=== PATIENT | female | born 1970 | race Caucasian/White ===

== ENCOUNTER → 2018-04-26 | Outpatient (CLI) | payer BC ==
--- NOTE | 2018-04-30 12:04 | MM ---
Reason for exam: screening (asymptomatic). Last mammogram was performed 1 year and 9 months ago. History: Patient history of other cancer and had first child at age 33. Family history of premenopausal breast cancer in mother at age 49 and breast cancer in maternal aunt. Took hormonal contraceptives for 5 years. Physical Findings: A clinical breast exam by your physician is recommended on an annual basis and results should be correlated with mammographic findings. MG Screening Mammo w CAD Bilateral CC and MLO view(s) were taken. Prior study comparison: August 02, 2016, bilateral MG screening mammo w CAD. September 24, 2014, bilateral MG screening mammo w CAD. Finding: There is new spiculated architectural distortion in the subareolar position of the left breast on MLO view. Focal asymmetry left outer CC view, a change. ASSESSMENT: Incomplete: need additional imaging evaluation, BI-RAD 0 RECOMMENDATION: Special view mammogram of the left breast. If lesion persists on supplemental views, image directed ultrasound is recommended. [facility] will attempt to contact patient to return for supplemental views and ultrasound if indicated.
== END | disposition home or self-care (01) ==
LOC: RADMAMWWP 14:47
PROVIDERS: ATTEND Obstetrics & Gynecology
DX: Z12.31 Encounter for screening mammogram for malignant neoplasm of breast (principal); Z80.3 Family history of malignant neoplasm of breast
CPT/HCPCS: 77067

== ENCOUNTER → 2018-08-13 | Outpatient (CLI) | payer BC ==
--- NOTE | 2018-08-13 08:20 | CT ---
EXAMINATION TYPE: CT sinus wo con DATE OF EXAM: 08/13/2018 COMPARISON: None HISTORY: Sinusitis CT DLP: 641.[address] of the paranasal sinuses was performed in the axial and coronal planes. Bone and soft tissue settings are submitted. The paranasal sinuses demonstrate normal aeration and development. The paranasal sinuses are free of mucosal thickening or air fluid level. The osteal meatal units are patent bilaterally. The nasal septum is midline. No bony destructive changes are seen within the field of view. IMPRESSION: Normal unenhanced CT of the paranasal sinuses.
== END | disposition home or self-care (01) ==
LOC: RADCTMAIN 08:03
PROVIDERS: ATTEND Otolaryngology
DX: J32.9 Chronic sinusitis, unspecified (principal)
CPT/HCPCS: 70486

== ENCOUNTER 2019-03-02 19:20 | Emergency (ER) | payer BC ==
[2019-03-02 19:25] VITALS: RESP 18; TEMP 98.8
[2019-03-02] MEDS ORDERED: METOCLOPRAMIDE 5 MG/ML 2 ML VIAL IVP STA (19:40)
[2019-03-02] MEDS ORDERED: diphenhydrAMINE 50 MG/ML 1 ML VIAL IVP STA (19:40)
[2019-03-02] MEDS ORDERED: SODIUM CHLORIDE 0.9% 1,000 ML IV ONE (19:41)
--- NOTE | 2019-03-02 19:42 | ED ---
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 Patient states she's had a headache for 4 days duration. Headache as pressure-like in nature, mostly frontal, associated with phobia photophobia. This headache was not sudden in onset is not the worse headache of her life. There is no focal neurologic deficits. Patient reports his headache is similar to previous though in the past her headaches have usually resolved with her medication including Maxalt. Patient reports she took Maxalt yesterday and the headache improved however she woke up today again had a fake a persisted throughout the day which prompted her to the ER for evaluation. MD Complaint: "migraine" Onset/Timin -: days(s) Onset Description: gradual Location: frontal Severity: moderate Quality: aching Consistency: constant Improves With: rest, other (Maxalt) Worsens With: light, noise Associated Symptoms: photophobia Treatments Prior to Arrival: prescription analgesic - Related Data Home Medications Medication Instructions Recorded Confirmed Rizatriptan Benzoate [Maxalt [employer]PERATOR] 5 mg SL DAILY PRN 03/02/19 03/02/19 Venlafaxine HCl ER [Effexor XR] 75 mg PO DAILY 03/02/19 03/02/19 Allergies Allergy/AdvReac Type Severity Reaction Status Date / Time erythromycin base AdvReac Nausea & Verified 03/02/19 19:41 Vomiting morphine AdvReac Nausea & Verified 03/02/19 19:41 Vomiting Review of Systems ROS Statement: Those systems with pertinent positive or pertinent negative responses have been documented in the HPI. ROS Other: All systems not noted in ROS Statement are negative. Past Medical History Additional Past Medical History / Comment(s): asthma as a child,states "having periods every 7-10 days with slight anemia", migraines History of Any Multi-Drug Resistant Organisms: None Reported Past Surgical History: Orthopedic Surgery Additional Past Surgical History / Comment(s): mult knee surgeries, ximena femur surgery Past Anesthesia/Blood Transfusion Reactions: Postoperative Nausea & Vomiting (PONV) Past Psychological History: Depression Smoking Status: Current every day smoker Past Alcohol Use History: None Reported Past Drug Use History: None Reported - Past Family History Father Family Medical History: Cancer Additional Family Medical History / Comment(s): colon ca 66 Sister(s) Family Medical History: Cancer Additional Family Medical History / Comment(s): breast ca at age 56 General Exam - General Exam Comments Initial Comments: Physical Exam GENERAL: Patient is well-developed and well-nourished. Patient is nontoxic and well- hydrated and is in no distress. HENT: Normocephalic, Atraumatic. EYES: PERRL, EOMI PULMONARY: Unlabored respirations. No audible rales rhonchi or wheezing was noted. CARDIOVASCULAR: There is a regular rate and rhythm without any murmurs gallops or rubs. ABDOMEN: Soft and nontender with normal bowel sounds. SKIN: Skin is clear with no lesions or rashes and otherwise unremarkable. : Deferred NEUROLOGIC: Patient is alert and oriented x3. Moving all extremities spontaneously MUSCULOSKELETAL: Normal extremities with adequate strength and full range of motion. No lower extremity swelling or edema. No calf tenderness. PSYCHIATRIC: Normal psychiatric evaluation Limitations: no limitations Course Vital Signs 03/02/19 03/02/19 19:21 21:45 Temperature 98.8 F Pulse Rate 76 66 Respiratory 18 18 Rate Blood Pressure 121/81 109/64 O2 Sat by Pulse 99 100 Oximetry - Reevaluation(s) Reevaluation #1: Patient was reevaluated her headache has resolved she is resting comfortably playing on her phone at this time would like to be discharged home. 03/02/19 21:25 Medical Decision Making - Medical Decision Making Relatively healthy 48-year-old female with a history of migraines presenting with migraine for 4 days duration, no red flag symptoms Physical exam is unremarkable Patient be rehydrated and treated with medications She was reevaluated after meds and fluids. Patient's resting comfortably playing on her phone headache has resolved she would like to be discharged home. Disposition Clinical Impression: Headache Disposition: HOME SELF-CARE Condition: Stable Instructions (If sedation given, give patient instructions): Acute Headache (ED) Is patient prescribed a controlled substance at d/c from ED?: No Referrals: Britton Powell III, MD [Primary Care Provider] - 1-2 days
[2019-03-02 21:47] VITALS: BP 109/64; PULSE 66
== END 2019-03-02 21:45 | disposition home or self-care (01) ==
LOC: EC 19:20
DX: R51 Headache (principal); H53.149 Visual discomfort, unspecified; F32.9 Major depressive disorder, single episode, unspecified; F17.200 Nicotine dependence, unspecified, uncomplicated; Z79.899 Other long term (current) drug therapy; Z88.1 Allergy status to other antibiotic agents; Z88.5 Allergy status to narcotic agent
CPT/HCPCS: 99283; 96374; 96375; 96361 ×2; J1200; J2765

== ENCOUNTER → 2019-04-28 | Outpatient (CLI) | payer BC ==
--- NOTE | 2019-04-28 11:05 | MM ---
Reason for exam: additional evaluation requested from prior study. Last mammogram was performed 1 year ago. History: Patient has history of other cancer at age 31 and had first child at age 33. Family history of premenopausal breast cancer in mother at age 49 and breast cancer in maternal aunt. Taking hormonal contraceptives for 5 years beginning at age 18. Physical Findings: Nurse did not find any significant physical abnormalities on exam. MG Diagnostic Mammo w CAD RICARDO Bilateral CC, MLO, and LM view(s) were taken. Spot compression CC and spot compression MLO view(s) were taken of the right breast. Prior study comparison: May 09, 2018, left breast MG 3d work up w/cad LT. May 09, 2018, left breast US breast workup limited LT. April 26, 2018, bilateral MG screening mammo w CAD. August 02, 2016, bilateral MG screening mammo w CAD. September 24, 2014, bilateral MG screening mammo w CAD. The questioned asymmetric densities are either stable or have resolved. Persistent nodularity posterior 6 o'clock right breast may appear more dense on the CC view but is smaller than 2015. Ultrasound recommended. These results were verbally communicated with the patient and result sheet given to the patient on 04/28/19. ASSESSMENT: Incomplete: need additional imaging evaluation, BI-RAD 0 RECOMMENDATION: Ultrasound of the right breast. (6 o'clock)
--- NOTE | 2019-04-28 11:07 | USB ---
Reason for exam: additional evaluation requested from abnormal screening. History: Patient has history of other cancer at age 31 and had first child at age 33. Family history of premenopausal breast cancer in mother at age 49 and breast cancer in maternal aunt. Taking hormonal contraceptives for 5 years beginning at age 18. US Breast Limited RT Right limited breast ultrasound including focal area of concern, retroareolar and axilla demonstrates no cystic or solid lesion seen. Scanned 3-6 o o'clock. 1 year follow up diagnostic mammogram recommended. Total 2 year follow up left breast. Precautionary 1 year diagnostic follow up right breast. These results were verbally communicated with the patient and result sheet given to the patient on 04/28/19. ASSESSMENT: Probably benign, BI-RAD 3 RECOMMENDATION: Follow-up diagnostic mammogram of both breasts in 1 year.
== END | disposition home or self-care (01) ==
LOC: RADMAMWWP 07:40
PROVIDERS: ATTEND Obstetrics & Gynecology
DX: R92.8 Other abnormal and inconclusive findings on diagnostic imaging of breast (principal)
CPT/HCPCS: 77066

== ENCOUNTER → 2020-12-15 | Outpatient (CLI) | payer BC ==
--- NOTE | 2020-12-15 11:29 | MM ---
Reason for exam: additional evaluation requested from prior study. Last mammogram was performed 1 year and 8 months ago. History: Patient has history of other cancer at age 31 and had first child at age 33. Family history of premenopausal breast cancer in mother at age 49 and breast cancer in maternal aunt at age 60. Took hormonal contraceptives for 10 years beginning at age 18. Physical Findings: Nurse did not find any significant physical abnormalities on exam. MG 3D Diag Mammo W/Cad RICARDO Bilateral CC and MLO view(s) were taken. Prior study comparison: April 28, 2019, bilateral MG diagnostic mammo w CAD RICARDO. May 09, 2018, left breast MG 3d work up w/cad LT. The breast tissue is heterogeneously dense. This may lower the sensitivity of mammography. Stable benign calcifications. Focal asymmetry outer lower right breast is stable. These results were verbally communicated with the patient and result sheet given to the patient on 12/15/20. ASSESSMENT: Benign, BI-RAD 2 RECOMMENDATION: Routine screening mammogram of both breasts in 1 year.
== END | disposition home or self-care (01) ==
LOC: RADMAMWWP 09:06
PROVIDERS: ATTEND Obstetrics & Gynecology
DX: R92.1 Mammographic calcification found on diagnostic imaging of breast (principal); N64.89 Other specified disorders of breast; Z80.3 Family history of malignant neoplasm of breast; Z78.0 Asymptomatic menopausal state
CPT/HCPCS: 77062; 77066

== ENCOUNTER → 2022-08-24 | Outpatient (CLI) | payer BC ==
--- NOTE | 2022-08-25 10:28 | MM ---
Reason for Exam: Screening (asymptomatic). Last mammogram was performed 1 year(s) and 8 month(s) ago. Patient History: Menarche at age 13. First Full-Term at age 33. Late child-bearing (after 30). Other cancer, age 31. Hormonal Contraceptives, starting at age 18 for 10 years. Maternal aunt had breast cancer, age 60. Mother had breast cancer, age 49. Risk Values: Esperanza 5 year model risk: 2.0%. NCI Lifetime model risk: 17.3%. Prior Study Comparison: 05/09/2018 Left Diagnostic Mammogram, [facility]. 04/28/2019 Bilateral Diagnostic Mammogram, [facility]. 12/15/2020 Bilateral Diagnostic Mammogram, [facility]. Tissue Density: There are scattered fibroglandular densities. Findings: Analyzed By CAD. There is a focal asymmetry at the 6:00 position inferior right breast. Parenchymal pattern and distribution appears stable from comparison. Benign punctate calcifications are present. No significant interval change is evident. No suspicious groups of microcalcifications, spiculated or lobular masses, architectural distortion or other secondary signs of malignancy are mammographically apparent. Overall Assessment: Benign, BI-RAD 2 Management: Screening Mammogram of both breasts in 1 year. A negative mammogram report should not preclude additional follow up of suspicious palpable abnormalities. Patient should continue monthly self breast exam. A clinical breast exam by your physician is recommended on an annual basis and results should be correlated with mammographic findings. Electronically signed and approved by: Kai Araiza D.O. Radiologis
== END | disposition home or self-care (01) ==
LOC: RADMAMWWP 16:22
PROVIDERS: ATTEND Obstetrics & Gynecology
DX: Z12.31 Encounter for screening mammogram for malignant neoplasm of breast (principal); Z80.3 Family history of malignant neoplasm of breast
CPT/HCPCS: 77063; 77067

== ENCOUNTER → 2023-10-31 | Outpatient (CLI) | payer BC ==
--- NOTE | 2023-11-02 19:19 | MM ---
Reason for Exam: Screening (asymptomatic). Last mammogram was performed 1 year(s) and 2 month(s) ago. Patient History: Menarche at age 13. First Full-Term at age 33. Late child-bearing (after 30). Patient has history of breast feeding. Other cancer, age 31. Hormonal Contraceptives, starting at age 18 for 10 years. Maternal aunt had breast cancer, age 60. Mother had breast cancer, age 49. Risk Values: Esperanza 5 year model risk: 2.1%. NCI Lifetime model risk: 16.7%. Prior Study Comparison: 04/28/2019 Bilateral Diagnostic Mammogram, [facility]. 12/15/2020 Bilateral Diagnostic Mammogram, [facility]. 08/24/2022 Bilateral MG 3D screening mammo w/cad, [facility]. Tissue Density: There are scattered fibroglandular densities. Findings: Analyzed By CAD. Unchanged bilateral areas of asymmetric density. There is no suspicious group of microcalcifications or new suspicious mass in either breast. Overall Assessment: Benign, BI-RAD 2 Management: Screening Mammogram of both breasts in 1 year. . Patient should continue monthly self-breast exams. A clinical breast exam by your physician is recommended on an annual basis. This exam should not preclude additional follow-up of suspicious palpable abnormalities. Note on Esperanza scores and lifetime risk: 1. A Esperanza score greater than 3% is considered moderate risk. If this is the case, consider specialist referral to assess eligibility for a risk reducing agent. 2. If overall lifetime risk for the development of breast cancer is 20% or higher, the patient may qualify for future screening with alternating mammogram and breast MRI. Electronically signed and approved by: Guero Boucher M.D. Radiologist
== END | disposition home or self-care (01) ==
LOC: RADMAMWWP 15:57
PROVIDERS: ATTEND Obstetrics & Gynecology
DX: Z12.31 Encounter for screening mammogram for malignant neoplasm of breast (principal); Z80.3 Family history of malignant neoplasm of breast
CPT/HCPCS: 77063; 77067

== ENCOUNTER → 2024-11-03 | Outpatient (CLI) | payer BC ==
--- NOTE | 2024-11-03 15:39 | MM ---
Reason for Exam: Screening (asymptomatic). Last screening mammogram was performed 12 month(s) ago. Patient History: Menarche at age 13. First Full-Term at age 33. Late child-bearing (after 30). Patient has history of breast feeding. Other cancer, age 31. Hormonal Contraceptives, starting at age 18 for 10 years. Maternal aunt had breast cancer, age 60. Mother had breast cancer, age 49. Risk Values: Esperanza 5 year model risk: 2.2%. NCI Lifetime model risk: 16.5%. Prior Study Comparison: 12/15/2020 Bilateral Diagnostic Mammogram, [facility]. 08/24/2022 Bilateral MG 3D screening mammo w/cad, [facility]. 10/31/2023 Bilateral MG 3D screening mammo w/cad, [facility]. Tissue Density: There are scattered areas of fibroglandular density. Findings: Analyzed By CAD. Right breast: There is no suspicious group of microcalcifications or new suspicious mass. Left breast: There is no suspicious group of microcalcifications or new suspicious mass. Overall Assessment: Negative, BI-RAD 1 Management: Screening Mammogram of both breasts in [address] [facility] will attempt to contact patient to return for supplemental views and ultrasound if indicated. Patient should continue monthly self-breast exams. A clinical breast exam by your physician is recommended on an annual basis. This exam should not preclude additional follow-up of suspicious palpable abnormalities. Note on Esperanza scores and lifetime risk: 1. A Esperanza score greater than 3% is considered moderate risk. If this is the case, consider specialist referral to assess eligibility for a risk reducing agent. 2. If overall lifetime risk for the development of breast cancer is 20% or higher, the patient may qualify for future screening with alternating mammogram and breast MRI. [facility], , 11/03/2024 3:37 PM. Electronically signed and approved by: Luis Carlos Mast DO
--- NOTE | 2024-11-04 06:47 | CTL ---
EXAMINATION TYPE: CT Low Dose Lung DATE OF EXAM ORDERED: 11/03/2024 COMPARISON: None. CLINICAL INDICATION: Female, 54 years old with history of Z12.2 LUNG CA SCREENING; PHH, Former smoke r, 1 ppd x 20 years., Lung cancer screening, History of Smoking/tobacco use. TECHNIQUE: Low dose computed tomography scan was performed through the chest at 1 mm thick sections a nd reconstructed images in multiple planes at 1 mm and [address] DLP: 68.[address] CTDI: 1.9 mGy Automated exposure control for dose reduction was used. CT DIAGNOSTIC QUALITY: Satisfactory FINDINGS: Nodules: RUL: None. RML: None. RLL: A 3 to 4 mm peripheral nodule axial image 215. RENNY: None. LLL: None. LUNGS: COPD: Severity: None Fibrosis: Severity: Moderate right apical pleural/parenchymal scarring Lymph nodes: None Other findings: None RIGHT PLEURAL SPACE: Effusion: None Calcification: None Thickening: Moderate right apical Pneumothorax: None LEFT PLEURAL SPACE: Effusion: None Calcification: None Thickening: None Pneumothorax: None HEART: Heart Size: Normal Coronary Calcification: None Pericardial Effusion: None OTHER FINDINGS: Upper abdomen: None Bony thorax: Scoliotic curvature of the thoracic spine Supraclavicular region: None Other: None IMPRESSION: Small peripheral 3 to 4 mm nodule right lower lobe. CT LUNG RAD AND CT CHEST RECOMMENDATION: Lung-Rad 2 Benign Appearance or Behavior: Continue annual sc reening with LDCT in 12 months. S Modifier (other clinically significant findings): None [facility], , 11/04/2024 6:44 AM
== END | disposition home or self-care (01) ==
LOC: RADCTMAIN 14:54
PROVIDERS: ATTEND Family Medicine
DX: Z12.31 Encounter for screening mammogram for malignant neoplasm of breast (principal); Z12.2 Encounter for screening for malignant neoplasm of respiratory organs; R92.323 Mammographic fibroglandular density, bilateral breasts; R91.1 Solitary pulmonary nodule; Z80.3 Family history of malignant neoplasm of breast; Z92.0 Personal history of contraception; Z87.891 Personal history of nicotine dependence
CPT/HCPCS: 71271; 77063; 77067

== ENCOUNTER 2025-03-17 09:30 | Day surgery (SDC) | payer BC ==
[2025-03-17] MEDS: LACTATED RINGERS 1,000 ML IV SCH (10:11)
[2025-03-17] MEDS: IV FLUID CONTINUATION 1,000 ML IV ONE (10:13)
[2025-03-17 10:16] VITALS: TEMP 98.4
[2025-03-17] MEDS ORDERED: PROPOFOL 10 MG/ML 20 ML VIAL IV ONE (10:32)
--- NOTE | 2025-03-17 10:37 | P.GSHP ---
History of Present Illness H&P Date: 03/17/25 Chief Complaint: Colon cancer screening with history of polyps 54-year-old female here for colonoscopy. Last colonoscopy 3 to 4 years ago. Patient with history of polyps. Family history of colon cancer in father. No bowel complaints. Past Medical History Additional Past Medical History / Comment(s): asthma as a child,states "having periods every 7-10 days with slight anemia", migraines History of Any Multi-Drug Resistant Organisms: None Reported Past Surgical History: Orthopedic Surgery, Uterine Ablation Additional Past Surgical History / Comment(s): mult knee surgeries, ximena femur surgery Past Anesthesia/Blood Transfusion Reactions: Postoperative Nausea & Vomiting (PONV) Smoking Status: Former smoker - Past Family History Father Family Medical History: Cancer Additional Family Medical History / Comment(s): colon ca 66 Sister(s) Family Medical History: Cancer Additional Family Medical History / Comment(s): breast ca at age 56 Medications and Allergies Home Medications Medication Instructions Recorded Confirmed Type Rizatriptan Benzoate [Maxalt YARD PILOT] 5 mg SL DAILY PRN 03/02/19 03/16/25 History Atogepant [Qulipta] 60 mg PO DAILY 03/16/25 03/17/25 History Cetirizine HCl 10 mg PO DAILY 03/16/25 03/17/25 History Allergies Allergy/AdvReac Type Severity Reaction Status Date / Time erythromycin base AdvReac Nausea & Verified 03/17/25 10:01 Vomiting morphine AdvReac Nausea & Verified 03/17/25 10:01 Vomiting Surgical - Exam Vital Signs Temp Pulse Resp BP Pulse Ox 98.4 F 89 18 125/86 98 03/17/25 10:14 03/17/25 10:14 03/17/25 10:14 03/17/25 10:14 03/17/25 10:14 Physical exam: General: Well-developed, well-nourished HEENT: Normocephalic, sclerae nonicteric Abdomen: Nontender, nondistended Extremities: No edema Neuro: Alert and oriented Assessment and Plan (1) Colon cancer screening Narrative/Plan: Will proceed with colonoscopy at this time. Current Visit: Yes Status: Acute Code(s): Z12.11 - ENCOUNTER FOR SCREENING FOR MALIGNANT NEOPLASM OF COLON SNOMED Code(s): 531696855
--- NOTE | 2025-03-17 10:49 | P.PCN ---
Date of Procedure: 03/17/25 Procedure(s) Performed: PREOPERATIVE DIAGNOSIS: Screening with personal history of colon polyps, family history of colon cancer in father POSTOPERATIVE DIAGNOSIS: Small rectal polyp PROCEDURE: Colonoscopy with snare polypectomy ANESTHESIA: MAC SURGEON: Raul Albrecht M.D. SPECIMENS: Polyp ENDOSCOPIC PROCEDURE: The patient was placed on the endoscopy table in the left decubitus position. The Olympus colonoscope was inserted into the anus and passed under direct visualization to the base of the cecum. The appendiceal orifice was visualized. From that point the scope was slowly withdrawn inspecting all surfaces carefully. There were no neoplastic inflammatory or polypoid lesions throughout the cecum, ascending, transverse, descending, and sigmoid colon. In the rectum there was a small polyp that was removed using the snare with cautery technique. The remainder of the rectum was normal. There was no visible diverticulosis. Digital rectal examination was normal. The patient was taken to the recovery room in stable condition per anesthesia guidelines. RECOMMENDATIONS: Await biopsy results. Repeat colonoscopy 5 years.
[2025-03-17 11:14] VITALS: BP 133/95; PULSE 71; RESP 26
== END 2025-03-17 11:33 | disposition home or self-care (01) ==
LOC: ORWHC2ENDO 09:30
PROVIDERS: ATTEND Surgery
DX: Z12.11 Encounter for screening for malignant neoplasm of colon (principal); D12.8 Benign neoplasm of rectum; F32.A Depression, unspecified; Z91.89 Other specified personal risk factors, not elsewhere classified; Z79.899 Other long term (current) drug therapy; Z87.891 Personal history of nicotine dependence; Z86.0100 Personal history of colon polyps, unspecified; Z80.0 Family history of malignant neoplasm of digestive organs; Z88.1 Allergy status to other antibiotic agents; Z88.5 Allergy status to narcotic agent
CPT/HCPCS: 81025; 88305; 45385; J2704